=== PATIENT | female | born 1985 | race Two or more races ===

== ENCOUNTER 2018-08-18 08:51 | Emergency (ER) | payer BC ==
[2018-08-18 09:25] LABS: ABSOLUTE EOSINOPHILS # (AUTO) 0.3 10^3/uL (0.0-0.6); ABSOLUTE LYMPHOCYTES (AUTO) 1.7 10^3/uL (0.5-4.7); ABSOLUTE MONOCYTES (AUTO) 0.6 10^3/uL (0.1-1.4); ABSOLUTE NEUT (AUTO) 4.5 10^3/uL (1.7-8.2); BASOPHILS % (AUTO) 0.6 % (0-2); EOSINOPHILS % (AUTO) 4.8 % (0-6); HEMATOCRIT 39.2 % (36.0-47.0); HEMOGLOBIN 13.1 g/dL (12.0-15.5); MEAN CORPUSCULAR HEMOGLOBIN 30.5 pg (27.0-33.4); MEAN CORPUSCULAR HGB CONC 33.4 g/dL (32.0-36.0); MEAN CORPUSCULAR VOLUME 91 fl (80-97); MONOCYTES % (AUTO) 8.1 % (3-13); PLATELET COUNT 253 10^3/uL (150-450); RED CELL DISTRIBUTION WIDTH 13.7 % (11.5-14.0); SEGMENTED NEUTROPHILS % (AUTO) 62.5 % (42-78); TOTAL CELLS COUNTED % (AUTO) 100 %; WHITE BLOOD COUNT 7.2 10^3/uL (4.0-10.5)
[2018-08-18 09:36] LABS: ALANINE AMINOTRANSFERASE 23 U/L (9-52); ALKALINE PHOSPHATASE 64 U/L (38-126); ANION GAP 12 (5-19); ASPARTATE AMINO TRANSFERASE 17 U/L (14-36); BILIRUBIN,DIRECT 0.2 mg/dL (0.0-0.4); BILIRUBIN,TOTAL 0.2 mg/dL (0.2-1.3); BLOOD UREA NITROGEN 7 mg/dL (7-20); CALCIUM 10.7 mg/dL (8.4-10.2); CARBON DIOXIDE 23 mmol/L (22-30); CHLORIDE 104 mmol/L (98-107); GLUCOSE 81 mg/dL (75-110); LIPASE 82.7 U/L (23-300); POTASSIUM 4.2 mmol/L (3.6-5.0); SODIUM 138.8 mmol/L (137-145); TOTAL PROTEIN 7.3 g/dL (6.3-8.2)
[2018-08-18 09:43] LABS: APPEARANCE,URINE SLIGHTLY-CLOUDY; BILIRUBIN,URINE NEGATIVE (NEGATIVE); COLOR,URINE YELLOW; GLUCOSE, URINE NEGATIVE (NEGATIVE); KETONES,URINE NEGATIVE (NEGATIVE); LEUKOCYTE ESTERASE,URINE MODERATE (NEGATIVE); NITRITE,URINE NEGATIVE (NEGATIVE); PROTEIN,URINE NEGATIVE (NEGATIVE); URINE SPECIFIC GRAVITY 1.019; UROBILINOGEN,URINE NEGATIVE mg/dL (<2.0)
--- NOTE | 2018-08-18 09:44 | ER Document Report ---
ED General - General Chief Complaint: OB Problem (<20wks) Stated Complaint: ABDOMINAL PAIN Time Seen by Provider: 08/18/18 09:30 Mode of Arrival: Ambulatory Information source: Patient, Relative, [facility] Records Notes: 33-year-old female at approximately 10 weeks and 5 days per last menstrual period presents with complaint of abdominal pain that started this morning. Patient's pain is located in the periumbilical region described as a sharp constant pain. Patient has had associated nausea throughout her but did have one episode of vomiting today. She denies any lower abdominal bleeding, vaginal bleeding, vaginal discharge, dysuria denies sick contacts, fever, chills, chest pain, shortness of breath, She has been receiving care and reports an ultrasound which showed an intrauterine . - HPI Onset: This morning Onset/Duration: Sudden Quality of pain: Sharp Severity: Moderate Associated symptoms: Nausea, Vomiting. denies: Chest pain, Fever, Headache, Shortness of breath Exacerbated by: Denies Relieved by: Denies Similar symptoms previously: No Recently seen / treated by doctor: Yes - Related Data Allergies/Adverse Reactions: No Known Allergies Allergy (Unverified 08/18/18 09:07) Past Medical History - General Information source: Patient, [facility] Records - Social History Smoking Status: Never Smoker Frequency of alcohol use: None Drug Abuse: None Lives with: Spouse/Significant other Family History: Reviewed & Not Pertinent Patient has suicidal ideation: No Patient has homicidal ideation: No - Medical History Medical History: Negative Renal/ Medical History: Denies: Hx Peritoneal Dialysis Review of Systems - Review of Systems Notes: REVIEW OF SYSTEMS: CONSTITUTIONAL : Denies fever, chills, or sweats. Denies recent illness. Denies weight loss, recent hospitalizations. EENT: Denies visual changes, eye pain. Denies sore throat, oral lesions, difficulty swallowing. CARDIOVASCULAR: Denies chest pain. Denies palpitations. Denies lower extremity edema. RESPIRATORY: Denies cough. Denies shortness of breath, wheezing. GASTROINTESTINAL: Denies abdominal distention. Denies diarrhea. Denies blood in vomitus, stools, or per rectum. Denies black, tarry stools. Denies constipation. GENITOURINARY: Denies difficulty urinating, painful urination, frequency, blood in urine, or vaginal discharge. MUSCULOSKELETAL: Denies back or neck pain or stiffness. Denies joint pain or swelling. SKIN: Denies rash, lesions or sores. HEMATOLOGIC : Denies easy bruising or bleeding. LYMPHATIC: Denies swollen glands. NEUROLOGICAL: Denies confusion or altered mental status. Denies loss of consciousness. Denies dizziness or lightheadedness. Denies headache. Denies weakness or paralysis. Denies problems difficulty with ambulation, slurred speech. Denies sensory loss, numbness, or tingling. Denies seizures. PSYCHIATRIC: Denies anxiety or stress. Denies depression, suicidal ideation, or homicidal ideation. Denies visual or auditory hallucinations. Physical Exam - Vital signs Vitals: Temp Pulse Resp BP Pulse Ox 97.9 F 86 18 143/90 H 100 08/18/18 09:06 08/18/18 09:06 08/18/18 09:06 08/18/18 09:06 08/18/18 09:06 - Notes Notes: PHYSICAL EXAMINATION: GENERAL: Well-appearing, well-nourished and in no acute distress. HEAD: Atraumatic, normocephalic. EYES: Pupils equal round and reactive to light, extraocular movements intact, conjunctiva are normal. ENT: Nares patent, oropharynx clear without exudates. Moist mucous membranes. NECK: Normal range of motion, supple without lymphadenopathy LUNGS: Breath sounds clear to auscultation bilaterally and equal. No wheezes rales or rhonchi. HEART: Regular rate and rhythm without murmurs ABDOMEN: Tenderness with palpation to the periumbilical region. No right lower quadrant, right upper quadrant or suprapubic tenderness. No guarding, no rebound. No masses appreciated. Female : Pelvic exam; External genitalia unremarkable. Speculum exam with no discharge. Vaginal wall unremarkable. Os closed. No cervical motion tenderness. No adnexal tenderness or masses appreciated. No vaginal bleeding Musculoskeletal: Normal range of motion, no pitting or edema. No cyanosis. NEUROLOGICAL: Cranial nerves grossly intact. Normal speech, normal gait. Normal sensory, motor exams PSYCH: Normal mood, normal affect. SKIN: Warm, Dry, normal turgor, no rashes or lesions noted. Course - Re-evaluation Re-evalutation: 08/18/18 20:45 Laboratory 08/18/18 08/18/18 08/18/18 09:00 09:00 09:30 WBC 7.2 RBC 4.30 Hgb 13.1 Hct 39.2 MCV 91 MCH 30.5 MCHC 33.4 RDW 13.7 Plt Count 253 Seg Neutrophils % 62.5 Lymphocytes % 24.0 Monocytes % 8.1 Eosinophils % 4.8 Basophils % 0.6 Absolute Neutrophils 4.5 Absolute Lymphocytes 1.7 Absolute Monocytes 0.6 Absolute Eosinophils 0.3 Absolute Basophils 0.0 Sodium 138.8 Potassium 4.2 Chloride 104 Carbon Dioxide 23 Anion Gap 12 BUN 7 Creatinine 0.65 Est GFR ( Amer) > 60 Est GFR (Non-Af Amer) > 60 Glucose 81 Calcium 10.7 H Total Bilirubin 0.2 Direct Bilirubin 0.2 Neonat Total Bilirubin Not Reportable Neonat Direct Bilirubin Not Reportable Neonat Indirect Bili Not Reportable AST 17 ALT 23 Alkaline Phosphatase 64 Total Protein 7.3 Albumin 4.0 Lipase 82.7 Beta HCG, Quant 980202.00 H Total Beta HCG POSITIVE Urine Color YELLOW Urine Appearance SLIGHTLY-CLOUDY Urine pH 5.0 Ur Specific [place] 1.019 Urine Protein NEGATIVE Urine Glucose (UA) NEGATIVE Urine Ketones NEGATIVE Urine Blood NEGATIVE Urine Nitrite NEGATIVE Urine Bilirubin NEGATIVE Urine Urobilinogen NEGATIVE Ur Leukocyte Esterase MODERATE H Urine WBC (Auto) 3 Urine RBC (Auto) 1 U Hyaline Cast (Auto) 1 Squamous Epi Cells Auto 2 Urine Mucus (Auto) FEW Urine Ascorbic Acid 20 H Temp Pulse Resp BP Pulse Ox 98.0 F 78 16 119/73 99 08/18/18 12:10 08/18/18 12:10 08/18/18 12:10 08/18/18 12:10 08/18/18 12:10 Obstetrics Ultrasound 08/18/18 09:31 IMPRESSION: 1. Single intrauterine gestation. EGA 11 weeks, 5 days. 2. Enlarged right ovary measuring 5.6 cm, of uncertain significance. There is no evident mass or other internal abnormality of the ovary. Arterial and venous Doppler flow is identified to the right ovary, however intermittent or incomplete torsion cannot be excluded in any enlarged ovary in the setting of acute abdominal pain. Correlate for referable signs and symptoms. Attention on follow-up. 3. The left ovary is nonvisualized. Trimester of : First - 0 to 13 weeks. 33-year-old female at approximately 11 weeks presents with complaints of sharp periumbilical abdominal pain that started this morning. Upon arrival vitals were reviewed and within normal limit. Patient is afebrile, normotensive and not hypoxic. Patient does not appear toxic or dehydrated. She is in no acute distress. Exam is significant for mild tenderness in the epigastric and periumbilical region. Patient has no right lower quadrant pain, suprapubic pain. CBC, CMP, lipase are unremarkable. Transvaginal ultrasound was obtained and and showed a single intrauterine with a heart rate of 147. It does show an enlarged right ovary that does have blood flow. Patient had no right adnexal tenderness. No right lower quadrant tenderness. Patient was given Zofran and then patient reports improvement of her pain and nausea. She had no episodes of vomiting during her ED course. Patient is tolerating fluids. She is requesting Zofran for discharge home. Copies of her ultrasound were provided to the patient so that she could bring them to her next OB appointment in 1 week. Did discuss signs and symptoms that should prompt her return which included right lower quadrant abdominal pain, fever, inability to tolerate p.o., recurring abdominal pain, vaginal bleeding. Family is at the bedside and everyone is comfortable with discharge home. Patient was evaluated and treated as appropriate for the patient's presenting symptoms and complaint, with consideration of any critical or life threatening conditions that may be associated with their obtained history and exam as noted above. All results were discussed with patient and Family members. Patient provided the opportunity to ask questions, and express concerns. Patient was educated on treatments based on their presumed diagnosis as noted above. At this time we will discharge the patient with return precautions and follow-up recommendations. Verbal discharge instructions given a the bedside. Medication warnings reviewed. Patient is in agreement with this plan and has verbalized understanding of return precautions. After careful consideration I feel that that patient can be safely discharged from the emergency department, they were advised to followup with a primary care physician in 2-3 days. Dictation on this chart was performed using voice recognition software and may result in unintended grammatical, spelling, syntax or errors. 08/18/18 20:48 - Vital Signs Vital signs: Temp Pulse Resp BP Pulse Ox 98.0 F 78 16 119/73 99 08/18/18 12:10 08/18/18 12:10 08/18/18 12:10 08/18/18 12:10 08/18/18 12:10 - Laboratory Result Diagrams: 08/18/18 09:00 08/18/18 09:00 Laboratory results interpreted by me: 08/18/18 08/18/18 09:00 09:30 Calcium 10.7 H Beta HCG, Quant 241567.00 H Ur Leukocyte Esterase MODERATE H Urine Ascorbic Acid 20 H - Diagnostic Test Radiology reviewed: Image reviewed, Reports reviewed Discharge - Discharge Clinical Impression: Elevated blood pressure reading, Ovarian enlargement, right Abdominal pain in Qualifiers: Trimester: first trimester Qualified Code(s): O26.891 - Other specified related conditions, first trimester Condition: Good Disposition: HOME, SELF-CARE Instructions: Abdominal Pain ([facility]), Observation for Appendicitis ([facility]), Pelvic Pain in ([facility]) Additional Instructions: Follow up with your [id number] hours for further care or return to the ED IMMEDIATELY if symptoms worsen or you have any concerns. If you cannot afford to follow up with your primary care physician a list of low cost clinics have been provided at the end of your discharge papers as well. Most prescribed medications have multiple side effects. The safest thing to do is when filling your prescription speak to your pharmacist regarding possible interactions with your normal home medications and over the counter medications such as Ibuprofen, Tylenol, Benadryl. If you experience any symptoms that cause you discomfort or concern you should discontinue the medication immediately and return to the emergency room or call your primary care physician. Prescriptions: Ondansetron [Zofran Odt 4 mg Tablet] 1 tab PO Q4H PRN #15 tab.rapdis PRN Reason: For Nausea/Vomiting Forms: Elevated Blood Pressure, Return to Work
--- NOTE | 2018-08-18 10:26 | RADIOLOGY REPORT (SQ) ---
EXAM DESCRIPTION: U/S OB TRANSVAGINAL W/O DOP COMPLETED DATE/TIME: 08/18/2018 10:11 am REASON FOR STUDY: Abdominal pain w COMPARISON: None. TECHNIQUE: Transvaginal and transabdominal static and realtime grayscale images acquired of the pelv is. Additional selected spectral and color Doppler images recorded. All images stored on PACs. bHCG: Not available. CLINICAL DATES: 11 weeks, 0 days LIMITATIONS: None. FINDINGS: FETUS: Single Living intrauterine . ULTRASOUND EGA: 11 weeks, 5 days ULTRASOUND DENIZ: 03/04/2019 EFW: Not applicable less than 20 weeks. CRL: 5.0 cm FHR: 147 beats per minute. SURVEY: Too early to assess. AMNIOTIC FLUID: Adequate amount. PLACENTA: Not yet developed due to early gestation. SUBCHORIONIC BLEED: No. SIZE OF BLEED: Not applicable. UTERUS: Large fibroid in the left uterine body measuring 6.4 cm. CERVICAL LENGTH: 4.0 cm Closed. RIGHT ADNEXA: The right ovary is enlarged, measuring 5.6 x 3.6 x 2.4 cm. No adnexal free fluid. No adnexal masses. LEFT ADNEXA: Not visualized. No adnexal free fluid. No adnexal masses. FREE FLUID: None. OTHER: No other significant finding. IMPRESSION: 1. Single intrauterine gestation. EGA 11 weeks, 5 days. 2. Enlarged right ovary measuring 5.6 cm, of uncertain significance. There is no evident mass or ot her internal abnormality of the ovary. Arterial and venous Doppler flow is identified to the right o vary, however intermittent or incomplete torsion cannot be excluded in any enlarged ovary in the sett ing of acute abdominal pain. Correlate for referable signs and symptoms. Attention on follow-up. 3. The left ovary is nonvisualized. Trimester of : First - 0 to 13 weeks. TECHNICAL DOCUMENTATION: JOB ID: [id number] [employer]- All Rights Reserved rev Reading location - IP/workstation name: [email or web address]
[2018-08-18 12:22] VITALS: BP 119/73
== END 2018-08-18 12:25 | disposition home or self-care (01) ==
LOC: EDUNIT# 08:51 → ER 08:51
DX: O26.891 Other specified pregnancy related conditions, first trimester (principal); N83.8 Other noninflammatory disorders of ovary, fallopian tube and broad ligament; R03.0 Elevated blood-pressure reading, without diagnosis of hypertension; R10.33 Periumbilical pain; Z3A.10 10 weeks gestation of pregnancy
CPT/HCPCS: 36415; 76817; 80053; 81001; 83690; 84702; 85025; 87086; 99284

== ENCOUNTER 2019-02-09 07:57 | Outpatient (CLI) | payer BC ==
[2019-02-09 09:13] LABS: 24 HOUR URINE PROTEIN RESULT 216 mg/day (42-225); URINE PROTEIN 16.6 mg/dL (<12)
--- NOTE | 2019-02-09 09:42 | Non Stress Test Report ---
Non Stress Test Datetime Report Generated by CPN: 02/09/2019 09:41 DEMOGRAPHIC EGA NST: 35.6 INDICATION Indication for Study: Ordered by Provider MONITORING Monitor Explained: Monitor Explained; Test Explained; Patient Verbalized Understanding Time on Monitor: 02/09/2019 08:08 Time off Monitor: 02/09/2019 09:15 NST Duration: 67 NST INTERVENTIONS NST Interventions: Reposition Patient Physician Notified NST: Dr. Younger BABY A: [id number] BABY A Movement : Present Contraction Frequency : 0 FHR Baseline : 130 Accelerations : 15X15 Decelerations : None Variability : Moderate 6-25bpm NST Review: Meets Criteria for Reactive NST NST Review and Verified By : Ramana Singhavaquinton RN NST Results: Reactive NST REPORT Report Trigger: Send Report
== END 2019-02-09 09:30 | disposition home or self-care (01) ==
LOC: LC 07:57
PROVIDERS: ATTEND Obstetrics & Gynecology
PROC: 4A1HXCZ Monitoring of Products of Conception, Cardiac Rate, External Approach (ICD-10-PCS; principal; 2019-02-09)
DX: O14.93 Unspecified pre-eclampsia, third trimester (principal); Z3A.35 35 weeks gestation of pregnancy
CPT/HCPCS: 84156

== ENCOUNTER 2019-02-25 17:36 | Inpatient (IN) | payer BC ==
[2019-02-25] MEDS ORDERED: RINGERS SOLUTION,LACTATED 300 ML IV ONE (17:38)
[2019-02-25] MEDS ORDERED: RINGERS SOLUTION,LACTATED 1,000 ML IV PRN (17:38)
[2019-02-25] MEDS ORDERED: DINOPROSTONE 10 MG VAGINAL INSERT.SR PV PRN (17:38)
[2019-02-25 18:26] LABS: ABSOLUTE EOSINOPHILS # (AUTO) 0.1 10^3/uL (0.0-0.6); ABSOLUTE LYMPHOCYTES (AUTO) 1.5 10^3/uL (0.5-4.7); ABSOLUTE MONOCYTES (AUTO) 0.6 10^3/uL (0.1-1.4); ABSOLUTE NEUT (AUTO) 3.8 10^3/uL (1.7-8.2); BASOPHILS % (AUTO) 0.4 % (0-2); EOSINOPHILS % (AUTO) 1.9 % (0-6); HEMATOCRIT 33.3 % (36.0-47.0); HEMOGLOBIN 10.9 g/dL (12.0-15.5); LYMPHOCYTES % (AUTO) 25.1 % (13-45); MEAN CORPUSCULAR HGB CONC 32.8 g/dL (32.0-36.0); MEAN CORPUSCULAR VOLUME 82 fl (80-97); MONOCYTES % (AUTO) 9.3 % (3-13); PLATELET COUNT 244 10^3/uL (150-450); RED BLOOD COUNT 4.04 10^6/uL (3.72-5.28); RED CELL DISTRIBUTION WIDTH 17.5 % (11.5-14.0); SEGMENTED NEUTROPHILS % (AUTO) 63.3 % (42-78); TOTAL CELLS COUNTED % (AUTO) 100 %
[2019-02-25 18:32] LABS: APPEARANCE,URINE CLOUDY; BILIRUBIN,URINE NEGATIVE (NEGATIVE); COLOR,URINE YELLOW; GLUCOSE, URINE NEGATIVE (NEGATIVE); KETONES,URINE TRACE mg/dL (NEGATIVE); LEUKOCYTE ESTERASE,URINE SMALL (NEGATIVE); NITRITE,URINE NEGATIVE (NEGATIVE); PROTEIN,URINE 30 mg/dL (NEGATIVE); URINE SPECIFIC GRAVITY 1.027; UROBILINOGEN,URINE NEGATIVE mg/dL (<2.0)
[2019-02-25 18:47] LABS: URINE AMPHETAMINES SCREEN NEGATIVE; URINE BARBITURATES SCREEN NEGATIVE; URINE BENZODIAZEPINES SCREEN NEGATIVE; URINE COCAINE SCREEN NEGATIVE; URINE MARIJUANA (THC) SCREEN NEGATIVE; URINE METHADONE SCREEN NEGATIVE; URINE PHENCYCLIDINE SCREEN NEGATIVE
[2019-02-25] MEDS ORDERED: DINOPROSTONE 10 MG VAGINAL INSERT.SR ONE (19:44)
--- NOTE | 2019-02-25 20:51 | Admission Physical ---
Datetime Report Generated by CPN: 02/25/2019 20:51 CURRENT ADMISSION Chief Complaint: Scheduled Induction of Labor Indication for Induction: Gestational HTN Admit Impression : Term, Intrauterine ; Intact Membranes Admit Plan: Admit to Unit; Initiate Labor Induction Protocol ALLERGIES Medication Allergies: No Medication Allergies: No Known Allergies (02/25/2019) Latex: No Latex Allergies Food Allergies: none Environmental Allergies: none OBSTETRICAL HISTORY EDC: 03/10/2019 00:00 : 1 Para: 0 Term: 0 : 0 SAB: 0 IAB: 0 Ectopic: 0 Livin Cesareans: 0 VBACs: 0 Multiple Births: 0 Gestational Diabetes: No Rh Sensitization: No Incompetent Cervix: No LEESA: No Infertility: No ART Treatment: No Uterine Anomaly: Yes IUGR: No Hx Previous C/S: No Macrosomia: No Hx Loss/Stillborn: No PIH: Yes Hx : No Placenta Previa/Abruption: No Depression/PP Depression: No PTL/PROM: No Post Hemorrhage: No Current Procedures: Ultrasound; NST Obstetrical History Comments: FIBROIDS; GHTN SEE RECORDS Alcohol: No Marijuana : No Cocaine: No Other Illicit Drugs: No Cigarettes: Never Smoker. 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 Surgery: No Heart Disease: No Hosp/Surgery: No Autoimmune Disorder: No Anesthetic Complications: No Kidney Disease: No Abnormal Pap Smear: Yes Neuro/Epilepsy: No Psychiatric Disorders: No Other Medical Diseases: No Hepatitis/Liver Disease: No Significant Family History: No Varicosities/Phlebitis: No Trauma/Violence : No Thyroid Dysfunction: No Medical History Comments: GHTN; FIBROIDS ABN PAP WITH COLPO INFECTIOUS HISTORY Gonorrhea: No Genital Herpes: No Chlamydia: No Tuberculosis: No Syphilis: No Hepatitis: No HIV/AIDS Exposure: No Rash or Viral Illness: No HPV: No PHYSICAL EXAM General: Normal HEENT: Normal Neurologic: Normal Thyroid: Normal Heart: Normal Lungs: Normal Breast: Deferred Back: Normal Abdomen: Normal Genitourinary Exam: Normal Extremities: Normal DTRs: Normal Pelvic Type: Adequate Vital Signs: Reviewed VAGINAL EXAM Dilatation: 1 Effacement: 70 Station: -2 MEMBRANES Pooling: Negative Membranes: Intact FETUS A EGA: 38.1 Monitoring: External US FHR- Baseline: 120 Decelerations: None Presentation: Vertex Admit Comment: Admit for induction PLANS FOR LABOR AND DELIVERY Labor and Delivery: None Pain Management: None Feeding Preference: Breast Benefit of Breast Feed Discussed: Yes Circumcision: Yes INFORMED CONSENT Signature: with User ID: [email or web address]
[2019-02-25] MEDS ORDERED: HYDRALAZINE HCL INJ/PF 20 MG/1 ML SDV IV PRN (21:06)
[2019-02-25] MEDS ORDERED: HYDRALAZINE HCL INJ/PF 20 MG/1 ML SDV ONE (21:07)
[2019-02-26] MEDS ORDERED: LIDOCAINE 1% INJ-PF (10 MG/ML) 30 ML SDV ONE (09:38)
[2019-02-26] MEDS ORDERED: MISOPROSTOL 0.2 MG TABLET ONE (09:38)
[2019-02-26] MEDS ORDERED: OXYTOCIN/NORMAL SALINE 20 UNIT/1,000 ML RTUINJ ONE (09:38)
[2019-02-26] MEDS ORDERED: OXYTOCIN 10 UNIT/ML VIAL ONE (09:38)
[2019-02-26] MEDS ORDERED: OXYTOCIN/NORMAL SALINE 20 UNIT/1,000 ML RTUINJ IV PRN (10:00)
[2019-02-26 11:56] LABS: ABSOLUTE EOSINOPHILS # (AUTO) 0.1 10^3/uL (0.0-0.6); ABSOLUTE LYMPHOCYTES (AUTO) 1.8 10^3/uL (0.5-4.7); ABSOLUTE MONOCYTES (AUTO) 0.8 10^3/uL (0.1-1.4); ABSOLUTE NEUT (AUTO) 4.9 10^3/uL (1.7-8.2); BASOPHILS % (AUTO) 0.6 % (0-2); EOSINOPHILS % (AUTO) 1.4 % (0-6); HEMATOCRIT 36.4 % (36.0-47.0); HEMOGLOBIN 11.8 g/dL (12.0-15.5); LYMPHOCYTES % (AUTO) 23.7 % (13-45); MEAN CORPUSCULAR HEMOGLOBIN 26.8 pg (27.0-33.4); MEAN CORPUSCULAR HGB CONC 32.4 g/dL (32.0-36.0); MEAN CORPUSCULAR VOLUME 83 fl (80-97); MONOCYTES % (AUTO) 10.4 % (3-13); PLATELET COUNT 227 10^3/uL (150-450); SEGMENTED NEUTROPHILS % (AUTO) 63.9 % (42-78); TOTAL CELLS COUNTED % (AUTO) 100 %; WHITE BLOOD COUNT 7.7 10^3/uL (4.0-10.5)
[2019-02-26 12:22] LABS: ALANINE AMINOTRANSFERASE 50 U/L (9-52); ALKALINE PHOSPHATASE 130 U/L (38-126); ANION GAP 8 (5-19); ASPARTATE AMINO TRANSFERASE 49 U/L (14-36); BILIRUBIN,DIRECT 0.2 mg/dL (0.0-0.4); BILIRUBIN,TOTAL 0.3 mg/dL (0.2-1.3); BLOOD UREA NITROGEN 7 mg/dL (7-20); CARBON DIOXIDE 18 mmol/L (22-30); CHLORIDE 110 mmol/L (98-107); POTASSIUM 4.1 mmol/L (3.6-5.0); SODIUM 135.7 mmol/L (137-145)
[2019-02-26 12:28] LABS: GLUCOSE 66 mg/dL (75-110)
[2019-02-26] MEDS ORDERED: DEXTROSE 5%-LACTATED RINGERS 250 ML IV PRN (14:38)
[2019-02-26] MEDS ORDERED: EPHEDRINE SULFATE INJ 50 MG/1 ML AMPULE ONE (15:41)
[2019-02-26] MEDS ORDERED: BUPIVACAINE HCL 0.25 % INJ/PF (2.5 MG/1 ML) 30 ML VIAL ONE ×2 (15:42→16:01)
[2019-02-26] MEDS ORDERED: FENTANYL/BUPIVACAINE/NS/PF 300 MCG/150 ML RTUINJ EPI ONE ×2 (15:42→16:01)
[2019-02-26 19:15] LABS: UR PRO/CREAT RATIO RESULT 0.5 mg/mg (0.0-0.2); URINE CREATININE 30.4 mg/dL (16-327); URINE PROTEIN 16.2 mg/dL (<12)
[2019-02-27] MEDS ORDERED: PROMETHAZINE HCL 25 MG TABLET PO PRN (01:45)
[2019-02-27] MEDS ORDERED: ZOLPIDEM TARTRATE 5 MG TABLET PO PRN (01:45)
[2019-02-27] MEDS ORDERED: DIPHENHYDRAMINE HCL 25 MG CAPSULE PO PRN (01:45)
[2019-02-27] MEDS ORDERED: GLYCERIN/WITCH HAZEL LEAF 1 EACH MED..WIPE TP PRN (01:45)
[2019-02-27] MEDS ORDERED: ACETAMINOPHEN WITH CODEINE #3 TABLET PO PRN ×2 (01:45)
[2019-02-27] MEDS ORDERED: MAGNESIUM HYDROXIDE SUSP 30 ML UDCUP PO PRN (01:45)
[2019-02-27] MEDS ORDERED: BENZOCAINE/MENTHOL AEROSOL SPRAY 56 ML TOP PRN (01:45)
[2019-02-27] MEDS ORDERED: DIBUCAINE 1% OINTMENT 56 GM TP PRN (01:45)
[2019-02-27] MEDS ORDERED: PROMETHAZINE HCL INJ 25 MG/1 ML VIAL IV PRN (01:45)
[2019-02-27] MEDS ORDERED: PSEUDOEPHEDRINE HCL 30 MG TABLET PO PRN (01:45)
[2019-02-27] MEDS ORDERED: DIPH/PERTUSS(ACELL)/TETANUS VAC/PF 0.5 ML SYR (>=10YO) IM PRN (01:45)
[2019-02-27] MEDS ORDERED: PROMETHAZINE HCL 25 MG SUPP.RECT PR PRN (01:45)
[2019-02-27] MEDS ORDERED: ACETAMINOPHEN 325 MG TABLET PO PRN (01:45)
[2019-02-27] MEDS ORDERED: OXYTOCIN/NORMAL SALINE 20 UNIT/1,000 ML RTUINJ IV PRN (01:45)
[2019-02-27] MEDS ORDERED: MEASLES,MUMPS&RUBELLA VACC/PF 0.5 ML VIAL SUBCUT PRN (01:45)
[2019-02-27] MEDS ORDERED: NA PHOS,M-B/NA PHOS,DI-BA (ADULT) 133 ML ENEMA PR PRN (01:45)
[2019-02-27] MEDS ORDERED: NIFEDIPINE 30 MG TAB.ER.24 PO ONE (02:33)
[2019-02-27] MEDS ORDERED: HYDRALAZINE HCL INJ/PF 20 MG/1 ML SDV IV ONE (02:56)
[2019-02-27] MEDS ORDERED: HYDRALAZINE HCL INJ/PF 20 MG/1 ML SDV ONE (02:59)
[2019-02-27 03:25] LABS: HEMATOCRIT 35.4 % (36.0-47.0); HEMOGLOBIN 11.4 g/dL (12.0-15.5); MEAN CORPUSCULAR HEMOGLOBIN 26.6 pg (27.0-33.4); MEAN CORPUSCULAR HGB CONC 32.2 g/dL (32.0-36.0); MEAN CORPUSCULAR VOLUME 83 fl (80-97); PLATELET COUNT 205 10^3/uL (150-450); RED BLOOD COUNT 4.29 10^6/uL (3.72-5.28); RED CELL DISTRIBUTION WIDTH 18.2 % (11.5-14.0); WHITE BLOOD COUNT 12.7 10^3/uL (4.0-10.5)
[2019-02-27 03:26] LABS: UR PRO/CREAT RATIO RESULT 0.7 mg/mg (0.0-0.2); URINE CREATININE 34.1 mg/dL (16-327); URINE PROTEIN 25.1 mg/dL (<12)
[2019-02-27 03:52] LABS: ALANINE AMINOTRANSFERASE 57 U/L (9-52); ALBUMIN 2.9 g/dL (3.5-5.0); ALKALINE PHOSPHATASE 128 U/L (38-126); ANION GAP 7 (5-19); ASPARTATE AMINO TRANSFERASE 48 U/L (14-36); BILIRUBIN,DIRECT 0.1 mg/dL (0.0-0.4); BILIRUBIN,TOTAL 0.3 mg/dL (0.2-1.3); BLOOD UREA NITROGEN 8 mg/dL (7-20); CALCIUM 9.5 mg/dL (8.4-10.2); CARBON DIOXIDE 21 mmol/L (22-30); CHLORIDE 109 mmol/L (98-107); POTASSIUM 4.2 mmol/L (3.6-5.0); TOTAL PROTEIN 5.7 g/dL (6.3-8.2); URIC ACID 6.2 mg/dL (2.5-6.2)
[2019-02-27 04:26] LABS: GLUCOSE 68 mg/dL (75-110)
[2019-02-27] MEDS: IBUPROFEN 800 MG TABLET PO SCH ×3 (05:57→22:46)
[2019-02-27] MEDS: NIFEDIPINE 30 MG TAB.ER.24 PO SCH (09:21)
[2019-02-27] MEDS: FAMOTIDINE 20 MG TABLET PO SCH ×2 (09:22→22:47)
[2019-02-27] MEDS: FERROUS SULFATE 325 MG TABLET PO SCH ×2 (09:22→18:07)
[2019-02-27] MEDS: DOCUSATE SODIUM 100 MG CAPSULE PO SCH ×2 (09:22→18:07)
[2019-02-27] MEDS: PRENATAL VITAMIN W DHA CAPSULE PO SCH (09:22)
[2019-02-27] MEDS: SENNOSIDES/DOCUSATE 8.6-50 MG 1 EACH TABLET PO SCH (09:22)
--- NOTE | 2019-02-27 10:18 | EKG REPORT ---
SEVERITY:- BORDERLINE ECG - SINUS RHYTHM PROBABLE LEFT ATRIAL ABNORMALITY BORDERLINE T ABNORMALITIES, ANTERIOR LEADS : Confirmed by: Cesia Delgadillo MD 27-Feb-2019 10:18:16
--- NOTE | 2019-02-27 11:08 | PDOC PROGRESS REPORT ---
Subjective-OB Progress Note for:: 02/27/19 Subjective: Doing well, no c/o, , ambulating, voiding, scant bleeding Physical Exam (OB) Vital Signs: Temp Pulse Resp BP Pulse Ox 97.8 F 99 18 143/91 H 100 02/27/19 08:02 02/27/19 08:02 02/27/19 08:02 02/27/19 08:02 02/27/19 08:02 Intake & Output 02/26/19 02/27/19 02/28/19 06:59 06:59 06:59 Intake Total 120 Balance 120 Weight 94.9 kg - PIH/Pre-Eclampsia DTR's: 2 + Clonus: Negative Headache: Absent Epigastric Pain: No Visual Changes: No - Lochia Lochia Amount: Scant < 10 ml Lochia Color: Rubra/Red - Abdomen Description: Tender Hernia Present: No Fundal Description: Firm Fundal Height: u/u - u/2 Objective-Diagnostic Laboratory: 02/27/19 03:09 02/27/19 03:09 02/26/19 02/26/19 02/27/19 11:41 11:41 03:09 WBC 7.7 RBC 4.40 Hgb 11.8 L Hct 36.4 MCV 83 MCH 26.8 L MCHC 32.4 RDW 18.0 H Plt Count 227 Seg Neutrophils % 63.9 Lymphocytes % 23.7 Monocytes % 10.4 Eosinophils % 1.4 Basophils % 0.6 Absolute Neutrophils 4.9 Absolute Lymphocytes 1.8 Absolute Monocytes 0.8 Absolute Eosinophils 0.1 Absolute Basophils 0.0 Sodium 135.7 L 137.0 Potassium 4.1 4.2 Chloride 110 H 109 H Carbon Dioxide 18 L 21 L Anion Gap 8 7 BUN 7 8 Creatinine 0.61 0.60 Est GFR ( Amer) > 60 > 60 Est GFR (Non-Af Amer) > 60 > 60 Glucose 66 L 68 L Uric Acid 6.0 6.2 Calcium 10.0 9.5 Total Bilirubin 0.3 0.3 AST 49 H 48 H ALT 50 57 H Alkaline Phosphatase 130 H 128 H Total Protein 6.0 L 5.7 L Albumin 3.0 L 2.9 L 02/27/19 03:09 WBC 12.7 H RBC 4.29 Hgb 11.4 L Hct 35.4 L MCV 83 MCH 26.6 L MCHC 32.2 RDW 18.2 H Plt Count 205 Seg Neutrophils % Lymphocytes % Monocytes % Eosinophils % Basophils % Absolute Neutrophils Absolute Lymphocytes Absolute Monocytes Absolute Eosinophils Absolute Basophils Sodium Potassium Chloride Carbon Dioxide Anion Gap BUN Creatinine Est GFR ( Amer) Est GFR (Non-Af Amer) Glucose Uric Acid Calcium Total Bilirubin AST ALT Alkaline Phosphatase Total Protein Albumin Assessment and Plan(PN) - Assessment and Plan (1) Delivery normal Is this a current diagnosis for this admission?: Yes (2) Gestational hypertension Qualifiers: Trimester: unspecified trimester Qualified Code(s): O13.9 - Gestational [-induced] hypertension without significant proteinuria, unspecified trimester Is this a current diagnosis for this admission?: Yes (3) Uterine fibroid during , antepartum Is this a current diagnosis for this admission?: Yes - Time Spent with Patient Time with patient: Less than 15 minutes Medications reviewed and adjusted accordingly: Yes - Disposition Anticipated Discharge: Home Within: within 24 hours
--- NOTE | 2019-02-27 16:19 | Delivery Summary ---
Del Sum A-C Datetime Report Generated by CPN: 02/27/2019 16:19 DELIVERY PERSONNEL DELIVERY PERSONNEL: [id number] Delivery Doctor:: Antonietta English MD Anesthesiologist:: Isaias Joya MD Labor and Delivery Nurse:: Anh Brandon RN Labor and Delivery Nurse:: Morenita Jama RN Post Office Markup Clerk/SUSTAINABILITY DIRECTOR: Radha Vee, ST MATERNAL INFORMATION Delivery Anesthesia: Epidural Medications After Delivery: Pitocin Drip 20 Units/1000ml NSS Estimated Blood Loss (ml): 10 Maternal Complications: None Provider Comments: VMI delivered in ANIKET presentations. No nuchal cord. SHoulders and body delivered without difficulty. Cord doubly clamped and cut. to maternal abdomen for NRP. Placenta delivered intact spontaneously. FF at U. No perineal lacaerations. Mother and baby stable upon provider leaving the room. LABOR SUMMARY EDC: 03/10/2019 00:00 No. Babies in Womb: 1 LABOR INFORMATION Reason for Induction: Gestational Hypertension Onset of Labor: 02/26/2019 14:00 Complete Dilatation: 02/27/2019 00:15 Cervical Ripening Agents: Cervidil Other Ripening Agents: cooks catheter Oxytocin: Induction Group B Beta Strep: NEGATIVE Steroids Given: None Reason Steroids Not Administered: Not Applicable MEMBRANES Membranes Rupture Method: Spontaneous Rupture of Membranes: 02/26/2019 14:00 Length of Rupture (hr): 11.35 Amniotic Fluid Color: Clear Amniotic Fluid Amount: Small Amniotic Fluid Odor: Normal STAGES OF LABOR Stage 1 hr: 10 Stage 1 min: 15 Stage 2 hr: 1 Stage 2 min: 6 Stage 3 hr: 0 Stage 3 min: 2 Total Time in Labor hr: 11 Total Time in Labor min: 23 VAGINAL DELIVERY Episiotomy: None Laceration #1: None Laceration Extension #1: N/A Laceration Repair: Not Applicable Sponge Count Correct: Yes Sharps Count Correct: Yes BABY A INFORMATION Infant Delivery Date/Time: 02/27/2019 01:21 Method of Delivery: Vaginal Method of Delivery: Vaginal Born in Route : No : N/A Forceps: N/A Vacuum Extraction: N/A PRESENTATION/POSITION BABY A Presentation: Cephalic Cephalic Presentation: Vertex Vertex Position: Right Occipital Anterior Breech Presentation: N/A PLACENTA INFORMATION BABY A Placenta Delivery Time : 02/27/2019 01:23 Placenta Method of Delivery: Spontaneous Placenta Status: Delivered SCORES BABY A Heart Rate 1 min: >100 bpm Resp Effort 1 min: Good Cry Reflex Irritability 1 min: Cough or Sneeze or Pulls Away Muscle Tone 1 min: Active Motion Color 1 min: Blue/Pale SCORE 1 MIN: 8 Heart Rate 5 min: >100 bpm Resp Effort 5 min: Good Cry Reflex Irritability 5 min: Cough or Sneeze or Pulls Away Muscle Tone 5 min: Active Motion Color 5 min: Body [place], Extremities Blue SCORE 5 MIN: 9 INFANT INFORMATION BABY A Infant Sex: Male Infant Sex: Male IDENTIFICATION BABY A Infant Verification Date/Time: 02/27/2019 01:36 ID Band Number: [id number] Mother's Name Verified: Yes Infant RN Verifying : ESTEBAN Rush RN WEIGHT/LENGTH BABY A Infant Birthweight (gm): 2961 Weight (lb): 6 Infant Weight (oz): 8 Length (in): 18.50 Length (cm): 46.99 CORD INFORMATION BABY A No. Cord Vessels: 3 Nuchal Cord : N/A Cord Blood Taken: N/A ASSESSMENT BABY A Infant Complications: None Physical Findings at Delivery: Within Normal Limits Infant Respirations: Appears Normal Skin to Skin: No Retail Account Manager/ALS Called : No Care By: Susie Tang RN Transferred To: Remains with Mother SIGNATURES Signature: with User ID: [email or web address] : I was personally available for consultation and serving as supervising physician for the MLP.
[2019-02-28] MEDS: IBUPROFEN 800 MG TABLET PO SCH ×3 (06:30→22:27)
[2019-02-28 07:08] LABS: HEMATOCRIT 31.9 % (36.0-47.0); HEMOGLOBIN 10.6 g/dL (12.0-15.5); MEAN CORPUSCULAR HEMOGLOBIN 27.4 pg (27.0-33.4); MEAN CORPUSCULAR HGB CONC 33.3 g/dL (32.0-36.0); MEAN CORPUSCULAR VOLUME 82 fl (80-97); PLATELET COUNT 214 10^3/uL (150-450); RED BLOOD COUNT 3.87 10^6/uL (3.72-5.28); RED CELL DISTRIBUTION WIDTH 18.3 % (11.5-14.0); WHITE BLOOD COUNT 10.2 10^3/uL (4.0-10.5)
--- NOTE | 2019-02-28 09:28 | PDOC PROGRESS REPORT ---
Subjective-OB Progress Note for:: 02/28/19 - PP day #1, pt doing well, denies headache, GHTN w/ slightly elevated LFT's, B+, rubella immune, Physical Exam (OB) Vital Signs: Temp Pulse Resp BP Pulse Ox 97.7 F 91 18 143/98 H 100 02/28/19 04:02 02/28/19 04:02 02/28/19 04:02 02/28/19 04:02 02/28/19 04:02 Intake & Output 02/27/19 02/28/19 03/01/19 06:59 06:59 06:59 Intake Total 620 Balance 620 - General General Appearance: Appears well, Alert In distress: None - PIH/Pre-Eclampsia DTR's: 2 + Clonus: Negative Headache: Absent Epigastric Pain: No Visual Changes: No - Lochia Lochia Amount: Small 10-25 ml Lochia Color: Rubra/Red - Abdomen Description: Soft, Round Hernia Present: No Fundal Description: Firm, Midline Fundal Height: u/u - u/2 - Respiratory Respiratory Status: No respiratory distress - Cardiovascular Rhythm: Regular - Abdominal Inspection: Normal Distension: No distension - Genitourinary Genitourinary Note: voiding - Extremities Upper extremity: Normal inspection Lower extremities: Edema - 1+ - Neurological Cognition: Normal Orientation: AAOx4 Neurological Note: denies h/a - Psychological Associated symptoms: Normal affect, Normal mood - Skin Skin Temperature: Warm Skin Moisture: Dry Objective-Diagnostic Laboratory: 02/28/19 06:31 02/27/19 03:09 02/28/19 06:31 WBC 10.2 RBC 3.87 Hgb 10.6 L Hct 31.9 L MCV 82 MCH 27.4 MCHC 33.3 RDW 18.3 H Plt Count 214 Assessment and Plan(PN) - Assessment and Plan (1) Elevated liver function tests Is this a current diagnosis for this admission?: Yes (2) Delivery normal Is this a current diagnosis for this admission?: Yes (3) Gestational hypertension Qualifiers: Trimester: unspecified trimester Qualified Code(s): O13.9 - Gestational [-induced] hypertension without significant proteinuria, unspecified trimester Is this a current diagnosis for this admission?: Yes (4) Uterine fibroid during , antepartum Is this a current diagnosis for this admission?: Yes - Time Spent with Patient Time with patient: Less than 15 minutes Medications reviewed and adjusted accordingly: Yes - Disposition Anticipated Discharge: Home Within: within 24 hours
[2019-02-28] MEDS: DOCUSATE SODIUM 100 MG CAPSULE PO SCH ×2 (09:55→17:23)
[2019-02-28] MEDS: FERROUS SULFATE 325 MG TABLET PO SCH ×2 (09:55→17:23)
[2019-02-28] MEDS: PRENATAL VITAMIN W DHA CAPSULE PO SCH (09:55)
[2019-02-28] MEDS: NIFEDIPINE 30 MG TAB.ER.24 PO SCH (09:55)
[2019-02-28] MEDS: SENNOSIDES/DOCUSATE 8.6-50 MG 1 EACH TABLET PO SCH (09:55)
[2019-02-28 10:04] LABS: ALANINE AMINOTRANSFERASE 78 U/L (9-52); ALBUMIN 2.8 g/dL (3.5-5.0); ALKALINE PHOSPHATASE 107 U/L (38-126); ANION GAP 7 (5-19); ASPARTATE AMINO TRANSFERASE 58 U/L (14-36); BILIRUBIN,DIRECT 0.2 mg/dL (0.0-0.4); BILIRUBIN,TOTAL 0.2 mg/dL (0.2-1.3); BLOOD UREA NITROGEN 5 mg/dL (7-20); CALCIUM 9.5 mg/dL (8.4-10.2); CARBON DIOXIDE 24 mmol/L (22-30); CHLORIDE 106 mmol/L (98-107); POTASSIUM 3.7 mmol/L (3.6-5.0); SODIUM 136.7 mmol/L (137-145); TOTAL PROTEIN 5.6 g/dL (6.3-8.2)
[2019-02-28 10:10] LABS: GLUCOSE 62 mg/dL (75-110)
[2019-02-28] MEDS: FAMOTIDINE 20 MG TABLET PO SCH ×2 (10:41→22:26)
[2019-03-01] MEDS: IBUPROFEN 800 MG TABLET PO SCH ×2 (05:14→13:41)
[2019-03-01] MEDS: NIFEDIPINE 30 MG TAB.ER.24 PO SCH (06:42)
--- NOTE | 2019-03-01 10:16 | PDOC DISCHARGE SUMMARY ---
Final Diagnosis Discharge Date: 03/01/19 - PP Day #2, pt is doing well, no complaints. Hx GHTN w/ slightly elevated LFT's during labor. pt has no complaints today. B+, rubella immune, - Final Diagnosis (1) Elevated liver function tests Is this a current diagnosis for this admission?: Yes (2) Delivery normal Is this a current diagnosis for this admission?: Yes (3) Gestational hypertension Is this a current diagnosis for this admission?: Yes (4) Uterine fibroid during , antepartum Is this a current diagnosis for this admission?: Yes Discharge Data - Discharge Medication Prescriptions: Ibuprofen [Motrin 800 mg Tablet] 800 mg PO Q8 #60 tablet Nifedipine [Procardia XL 30 mg Tablet] 30 mg PO Q6AM #30 tab.er.24 Home Medications: Pnv No.95/Ferrous Fum/Folic AC [ Vitamin Tablet] 1 tab PO DAILY 02/25/19 Ibuprofen [Motrin 800 mg Tablet] 800 mg PO Q8 #60 tablet 02/28/19 Nifedipine [Procardia XL 30 mg Tablet] 30 mg PO Q6AM #30 tab.er.24 03/01/19 Reason(s) for Admission: Induction of Labor, Other - GHTN Procedures: NST, Ultrasound Intrapartum Procedure(s): Spontaneous Vaginal Delivery - Diagnosis Test Laboratory: Temp Pulse Resp BP Pulse Ox 97.7 F 80 18 146/93 H 100 03/01/19 07:53 03/01/19 07:53 03/01/19 07:53 03/01/19 07:53 03/01/19 07:53 02/25/19 02/25/19 02/26/19 17:50 18:07 11:41 RBC 4.04 4.40 Hgb 10.9 L 11.8 L Hct 33.3 L 36.4 Urine Opiates Screen NEGATIVE 02/27/19 02/28/19 03:09 06:31 RBC 4.29 3.87 Hgb 11.4 L 10.6 L Hct 35.4 L 31.9 L Urine Opiates Screen - Discharge information/Instructions Discharge Activity: Activity As Tolerated, No Lifting Over 10 Pounds, Pelvic Rest Discharge Diet: As Tolerated, Regular Disposition: HOME, SELF-CARE Follow up with: [facility] in: 1, Weeks - for BP check
[2019-03-01] MEDS: PRENATAL VITAMIN W DHA CAPSULE PO SCH (12:19)
[2019-03-01] MEDS: DOCUSATE SODIUM 100 MG CAPSULE PO SCH (12:20)
[2019-03-01] MEDS: SENNOSIDES/DOCUSATE 8.6-50 MG 1 EACH TABLET PO SCH (12:20)
[2019-03-01] MEDS: FERROUS SULFATE 325 MG TABLET PO SCH (12:20)
[2019-03-01] MEDS: FAMOTIDINE 20 MG TABLET PO SCH (12:20)
[2019-03-01 13:17] VITALS: BP 178/84
[2019-03-02] MEDS ORDERED: NIFEDIPINE 30 MG TAB.ER.24 PO SCH (06:00)
== END 2019-03-01 16:00 | disposition home or self-care (01) | DRG 807 ==
LOC: LR 17:36 → 2S 02-27 03:40
PROVIDERS: ADMIT Student in an Organized Health Care Education/Training Program; ATTEND Student in an Organized Health Care Education/Training Program
PROC: 10E0XZZ Delivery of Products of Conception, External Approach (ICD-10-PCS; principal; 2019-02-27)
DX: O13.4 Gestational [pregnancy-induced] hypertension without significant proteinuria, complicating childbirth (principal); Z37.0 Single live birth; O34.13 Maternal care for benign tumor of corpus uteri, third trimester; D25.9 Leiomyoma of uterus, unspecified; Z3A.38 38 weeks gestation of pregnancy
CPT/HCPCS: 36415; 80053; 80307; 81005; 82570; 82962; 83615; 84156; 84550; 85025; 85027; 86592; 86850; 86900; 86901; 93005; 93010; 94760; J0360; J2590; J3010; J3490

== ENCOUNTER → 2020-06-21 | Outpatient (CLI) | payer BC ==
--- NOTE | 2020-06-21 11:55 | RADIOLOGY REPORT (SQ) ---
EXAM DESCRIPTION: L SPINE 2 VIEWS IMAGES COMPLETED DATE/TIME: 06/21/2020 9:31 am REASON FOR STUDY: LOW BACK PAIN COMPARISON: None. NUMBER OF VIEWS: Three views TECHNIQUE: AP, lateral and sacral radiographic images acquired of the lumbar spine. LIMITATIONS: None. FINDINGS: MINERALIZATION: Normal. SEGMENTATION: Normal. No transitional anatomy. ALIGNMENT: Normal. VERTEBRAE: Maintained height. No fracture or worrisome bone lesion. DISCS: Preserved height. No significant osteophytes or end plate irregularity. POSTERIOR ELEMENTS: Pedicles and facets are intact. No pars defect or posterior arch defects. HARDWARE: None in the spine. PARASPINAL SOFT TISSUES: Normal. PELVIS: Intact as visualized. No fractures or worrisome bone lesions. SI joints intact. OTHER: No other significant finding. IMPRESSION: No radiographic abnormality of the lumbar spine. TECHNICAL DOCUMENTATION: JOB ID: [id number] [employer]- All Rights Reserved Reading location - IP/workstation name: [email or web address]
--- NOTE | 2020-06-21 12:57 | WOMENS IMAGING REPORT ---
EXAM DESCRIPTION: TRANSVAGINAL ULTRASOUND IMAGES COMPLETED DATE/TIME: 06/21/2020 10:23 am REASON FOR STUDY: D25.9 LEIOMYOMA OF UTERUS, UNSPECIFIED D25.9 LEIOMYOMA OF UTERUS, UNSPECIFIED COMPARISON: None. TECHNIQUE: Dynamic and static grayscale images acquired of the pelvis via transvaginal approach and recorded on PACS. Additional selected color Doppler and spectral images recorded. LIMITATIONS: None. FINDINGS: UTERUS: 5 cm uterine fibroid. ENDOMETRIAL STRIPE: No focal or generalized thickening. No masses. CERVIX: Nabothian cysts are present. RIGHT OVARY AND DOPPLER: Normal size. No worrisome masses. Normal arterial vascular flow without evid ence for torsion. LEFT OVARY AND DOPPLER: Ovary not seen. FREE FLUID: None noted. OTHER: No other significant finding. MEASUREMENTS: UTERUS: 8.6 x 6.2 x 4.6 cm. ENDOMETRIAL STRIPE: 8.5 mm. RIGHT OVARY: 3.1 x 1.9 x 2 cm. LEFT OVARY: Ovary not seen. IMPRESSION: 5 cm uterine fibroid. Nabothian cysts. No other significant finding. TECHNICAL DOCUMENTATION: JOB ID: [id number] 2010 [employer]- All Rights Reserved Rev-01/25 Reading location - IP/workstation name: [email or web address]
== END ==
LOC: WI 09:34
PROVIDERS: ATTEND Internal Medicine Geriatric Medicine
DX: M54.5 Low back pain (principal); D25.9 Leiomyoma of uterus, unspecified; N88.8 Other specified noninflammatory disorders of cervix uteri
CPT/HCPCS: 72100; 76830

== ENCOUNTER → 2020-06-21 | Outpatient (CLI) | payer BC ==
[2020-06-21 12:07] LABS: ABSOLUTE BASOPHILS # (AUTO) 0.1 10^3/uL (0.0-0.2); ABSOLUTE EOSINOPHILS # (AUTO) 0.2 10^3/uL (0.0-0.6); ABSOLUTE LYMPHOCYTES (AUTO) 1.8 10^3/uL (0.5-4.7); ABSOLUTE MONOCYTES (AUTO) 0.3 10^3/uL (0.1-1.4); ABSOLUTE NEUT (AUTO) 2.3 10^3/uL (1.7-8.2); BASOPHILS % (AUTO) 1.3 % (0-2); EOSINOPHILS % (AUTO) 4.8 % (0-6); HEMATOCRIT 39.1 % (36.0-47.0); HEMOGLOBIN 13.1 g/dL (12.0-15.5); LYMPHOCYTES % (AUTO) 38.6 % (13-45); MEAN CORPUSCULAR HEMOGLOBIN 29.9 pg (27.0-33.4); MEAN CORPUSCULAR HGB CONC 33.5 g/dL (32.0-36.0); MEAN CORPUSCULAR VOLUME 89 fl (80-97); MONOCYTES % (AUTO) 6.7 % (3-13); PLATELET COUNT 285 10^3/uL (150-450); RED BLOOD COUNT 4.39 10^6/uL (3.72-5.28); RED CELL DISTRIBUTION WIDTH 13.1 % (11.5-14.0); SEGMENTED NEUTROPHILS % (AUTO) 48.6 % (42-78); TOTAL CELLS COUNTED % (AUTO) 100 %; WHITE BLOOD COUNT 4.7 10^3/uL (4.0-10.5)
[2020-06-21 12:33] LABS: ALBUMIN 4.5 g/dL (3.5-5.0); ALKALINE PHOSPHATASE 60 U/L (38-126); ANION GAP 11 (5-19); ASPARTATE AMINO TRANSFERASE 20 U/L (14-36); BILIRUBIN,DIRECT 0.2 mg/dL (0.0-0.4); BILIRUBIN,TOTAL 0.5 mg/dL (0.2-1.3); BLOOD UREA NITROGEN 14 mg/dL (7-20); CALCIUM 10.1 mg/dL (8.4-10.2); CARBON DIOXIDE 26 mmol/L (22-30); CHLORIDE 101 mmol/L (98-107); GLUCOSE 78 mg/dL (75-110); IRON(TIBC) 48.4 ug/dL (37-170); TOTAL PROTEIN 7.5 g/dL (6.3-8.2)
[2020-06-21 13:05] LABS: FERRITIN 6.97 ng/mL (6.2-137.0)
[2020-06-21 13:35] LABS: FOLATE 5.72 ng/mL (>2.76)
== END ==
LOC: OD 10:53
PROVIDERS: ATTEND Internal Medicine Geriatric Medicine
DX: D64.9 Anemia, unspecified (principal); R74.01 Elevation of levels of liver transaminase levels
CPT/HCPCS: 36415; 80053; 82607; 82728; 82746; 83540; 83550; 85025